=== PATIENT | female | born 1945 | race Caucasian/White ===

== ENCOUNTER 2018-01-17 12:59 | Outpatient (CLI) | payer MEDICARE ==
--- NOTE | 2018-01-17 14:14 | RAD ---
RIGHT HIP TWO VIEWS: History: Hip pain. FINDINGS: There are moderate degenerative changes present. There is mild medial joint narrowing. Prominent spur ring from the femoral head and acetabulum. Subchondral cystic changes. IMPRESSION: Moderate degenerative changes as described. POS: [facility]
--- NOTE | 2018-01-17 15:34 | RAD ---
TWO VIEWS OF THE LEFT HIP 01/17/18 HISTORY: Pain. FINDINGS: There is mild superior joint space narrowing involving the left hip. There is lateral acetabular oste ophyte formation on the left. There are postoperative clips in the left inguinal region. No acute fra cture or dislocation is seen. IMPRESSION: Left hip superior joint space narrowing and lateral acetabular osteophyte formation with no acute fra cture or evidence of dislocation. POS: [facility]
--- NOTE | 2018-01-17 15:38 | RAD ---
AP PELVIS: Indications: Hip pain. FINDINGS: Femoral head contour is preserved bilaterally. There appears to be some kind of cystic changes in the right femoral head with hypertrophic spurring from the right femoral head indicating moderate degene rative changes of the right hip. Mild degenerative changes of the left hip noted. POS: [facility]
== END 2018-01-17 13:00 | disposition home or self-care (01) ==
LOC: SCSRAD 12:59
PROVIDERS: ATTEND Internal Medicine Rheumatology
DX: M25.551 Pain in right hip (principal); M16.0 Bilateral primary osteoarthritis of hip; M25.752 Osteophyte, left hip
CPT/HCPCS: 72170

== ENCOUNTER 2018-09-27 13:15 | Inpatient (IN) | payer MEDICARE ==
[2018-10-03 10:26] LABS: #Eosinphils 0.1 thou/uL (0.0-0.7); #Lymphocytes 1.4 thou/uL (1.20-3.40); #Monocytes 0.4 thou/uL (0.11-0.59); #Neutrophils 1.2 thou/uL (1.40-6.50); %Basophils 0.4 % (0.0-1.0); %Eosinophils 1.8 % (0.0-10.0); %Monocytes 13.4 % (0.0-10.0); %Neutrophils 40.4 % (42.0-75.0); Hemoglobin 13.5 g/dL (12.0-16.0); Mean Corpuscular HGB CONC 32.7 g/dL (32.0-36.0); Mean Corpuscular Hemoglobin 30.5 pg (27.0-31.0); Mean Corpuscular Volume 93.2 fL (78.0-98.0); Mean Platelet Volume 8.6 fL (7.4-10.4); Platelet Count 227 thou/uL (130-400); RBC Distribution Width 11.8 % (11.5-14.5); Red Blood Cell (RBC) Count 4.44 mill/uL (4.20-5.40); White Blood Cell (WBC) Count 3.1 thou/uL (4.8-10.8)
[2018-10-03 10:33] LABS: Prothrombin Time 12.8 SEC (12.0-14.7)
[2018-10-03 10:44] LABS: Anion Gap 10 mmol/L (10-20); BUN (Urea Nitrogen) 21 mg/dL (9.8-20.1); Calc. Creatinine Clearance 0 mL/min (70-130); Calcium 9.9 mg/dL (7.8-10.44); Carbon Dioxide 31 mmol/L (23-31); Chloride 103 mmol/L (98-107); Estimated GFR-MDRD 72; Glucose 69 mg/dL (83-110); Potassium 3.8 mmol/L (3.5-5.1); Sodium 140 mmol/L (136-145)
[2018-10-09] MEDS ORDERED: Fentanyl 100 MCG/2 ML VIAL ONE ×3 (05:51→08:44)
[2018-10-09] MEDS ORDERED: Ropivacaine 0.2% HCl/PF 20 ML ONE (05:51)
[2018-10-09] MEDS ORDERED: Lidocaine 2% Jelly 5 ML TUBE ONE (05:51)
[2018-10-09] MEDS ORDERED: Phenylephrine HCL 10 MG/ML VIAL ONE (05:52)
[2018-10-09] MEDS ORDERED: Midazolam HCl 2 mg/2 ml Vial ONE (06:23)
[2018-10-09] MEDS ORDERED: Sodium Chloride 0.9% 100 ML ONE (06:29)
[2018-10-09] MEDS ORDERED: Tranexamic Acid 1,000 MG/10 ML VIAL ONE (06:29)
[2018-10-09] MEDS ORDERED: Promethazine HCl 25 MG/ML VIAL IM PRN ×2 (06:59→10:59)
[2018-10-09] MEDS ORDERED: diphenhydrAMINE 25 MG CAP PO PRN ×2 (06:59→07:30)
[2018-10-09] MEDS ORDERED: Acetaminophen 325 MG TAB PO PRN (06:59)
[2018-10-09] MEDS ORDERED: Ondansetron PF 4 MG/2 ML Vial IVP PRN (06:59)
[2018-10-09] MEDS ORDERED: Zolpidem Tartrate 5 MG TAB PO PRN ×2 (06:59→07:30)
[2018-10-09] MEDS ORDERED: traMADol HCl 50 MG TAB PO PRN ×3 (06:59→07:30)
[2018-10-09] MEDS ORDERED: Naloxone HCl 0.4 mg/ml Vial IV PRN (07:30)
[2018-10-09] MEDS ORDERED: Promethazine HCl 25 MG SUPP PR PRN (07:30)
[2018-10-09] MEDS ORDERED: Bupivacaine 0.25% 10 ML VIAL EPIDURAL PRN (07:30)
[2018-10-09] MEDS ORDERED: Naloxone HCl 0.4 mg/ml Vial IVP PRN (07:30)
[2018-10-09] MEDS ORDERED: Hydrocerin (Eucerin) Cream 120 gm Jar TOP PRN (07:30)
[2018-10-09] MEDS ORDERED: diphenhydrAMINE 50 MG/ML VIAL IM PRN (07:30)
[2018-10-09] MEDS ORDERED: diphenhydrAMINE 50 MG/ML VIAL IVP PRN (07:30)
[2018-10-09] MEDS ORDERED: Fentanyl 5 mcg/Bup 0.075% Cadd 100 ML EPIDURAL ONE (08:36)
[2018-10-09] MEDS ORDERED: MULTIVIT IRON MINER PO SCH (09:00)
[2018-10-09] MEDS ORDERED: FOLIC ACID PO SCH (09:00)
[2018-10-09] MEDS ORDERED: [UNRECOGNIZED DRUG - OTHER] PO SCH (09:00)
--- NOTE | 2018-10-09 09:13 | RAD ---
XR Hip Rt 2-3 View HISTORY: Postop COMPARISON: None. FINDINGS: A right hip prosthesis is been placed which is in good position. No evidence of fracture. IMPRESSION: Placement of right hip prosthesis.
[2018-10-09] MEDS ORDERED: Ketorolac Tromethamine 30 MG/ML VIAL ONE (09:30)
--- NOTE | 2018-10-09 10:37 | OP ---
DATE OF PROCEDURE: 10/09/2018 PREOPERATIVE DIAGNOSIS: Degenerative joint disease, right hip. POSTOPERATIVE DIAGNOSIS: Degenerative joint disease, right hip. PROCEDURE PERFORMED: Right total hip arthroplasty using [place] Accolade 4 stem, a 54 mm cup, 36 mm head, X3 liner. GLASS FURNACE OPERATOR: Suad Ramon PA-C BLOOD LOSS: 100. SPECIMEN: None. DRAIN: None. COMPLICATION: None. PROCEDURE IN DETAIL: After informed consent was obtained in the preoperative holding area, the patient was taken to the operative suite where general anesthesia was induced. The patient was then positioned in the lateral decubitus position. The hip was then prepped and draped in usual sterile fashion. The patient received preoperative antibiotics. Prior to incision, time-out was called and all members of the surgical team agreed upon site, surgeon, and patient. After this, a longitudinal incision was made directly over the trochanter, noted by palpation extending 2 fingerbreadths above and below the trochanter. The deeper subcutaneous layer was undermined with Bovie electrocautery. The iliotibial band was encountered and incised sharply and the plane below this was developed bluntly. A Charnley retractor was placed to hold this opened. The lateral aspect of the trochanter and the abductor muscles were encountered and then reflected anteriorly off the trochanter using Bovie electrocautery. Once this was completed, the anterior capsule was then encountered and identified and copious capsulotomy was carried out, exposing the femoral neck and head. Dislocation maneuver was then performed and an in situ provisional neck cut was then made using the oscillating saw. Attention was then turned to acetabular preparation and sequential reaming was carried out up to the appropriate diameter. A trial was then malleted into place with good firm resistance and no pullout. The permanent acetabular shell was then malleted squarely into place, as was the appropriate liner. Once completed, the wound was copiously irrigated and attention was then turned to femoral preparation. Flexion and external rotation were performed of the exposed thigh and femoral elevators were then placed at the proximal aspect of the wound. Canal finder was used to establish the length of the canal and sequential reaming was carried out, followed by broaching. Once the appropriate stability was established with the trial broaches with flexion, extension and rotational stability, we did trial with neutral and 2 mm offset incremental necks. Once the appropriate size was decided upon, with good stability noted with flexion, extension, internal and external rotation and shuck being negative, we removed the femoral trial broach and malleted into place the permanent prosthesis with good firm fit, which was also stable to rotation. Again, the hip felt very stable to flexion, extension, internal and external rotation. Leg lengths appeared near anatomic clinically and we were quite happy with prosthesis placement. Copious irrigation was then carried out through the entirety of the wound. Primary closure of the abductors was accomplished with interrupted #2 Vicryl [id number] stitches and the IT band was then closed with interrupted #2 Vicryl, oversewn with a #2 running barbed Quill stitch. Subcutaneous fascia was closed with running barbed Quill stitch and a subcuticular Monocryl barbed Quill stitch was used for skin closure and augmented with skin cement. A sterile dressing was applied. The procedure was terminated without any complication. All counts were correct. The patient was awakened in the operative suite and taken to the recovery room in stable condition. Job ID: [id number]
[2018-10-09] MEDS ORDERED: Promethazine HCl 25 MG/ML VIAL SLOW IVP PRN (10:59)
[2018-10-09] MEDS ORDERED: Ondansetron HCl/PF 4 MG/2 ML Vial IVP PRN (10:59)
[2018-10-09] MEDS ORDERED: Ketorolac Tromethamine 30 MG/ML VIAL IVP SCH ×2 (12:00→14:00)
[2018-10-09 12:20] VITALS: BMI 19.7
[2018-10-09] MEDS: Artificial Tears 18 DROP/0.9 ML EA EYE SCH (12:22)
[2018-10-09] MEDS: Losartan 25 MG TAB PO SCH (12:22)
[2018-10-09] MEDS: Aspirin 81 mg Enteric Coated Tablet PO SCH ×2 (12:22→20:32)
[2018-10-09] MEDS: Calcium Carbonate + Vit D 1 TAB PO SCH (12:22)
[2018-10-09] MEDS: Sodium Chloride 0.9% 1,000 ML IV SCH ×3 (12:23→22:15)
[2018-10-09] MEDS: Ondansetron PF 4 MG/2 ML Vial IVP PRN ×2 (12:41→20:31)
[2018-10-09] MEDS ORDERED: Glycopyrrolate 0.2 MG/ML 5 ML SYRINGE ONE (14:26)
[2018-10-09] MEDS ORDERED: PHENYLEPHRINE-NS 100 MCG/ML 10 ML SYRINGE ONE (14:26)
[2018-10-09] MEDS ORDERED: Dexamethasone 20 MG/5 ML VIAL ONE (14:26)
[2018-10-09] MEDS ORDERED: PROPOFOL 200 MG/20 ML VIAL ONE (14:26)
[2018-10-09] MEDS ORDERED: Rocuronium Bromide 10 MG/ML (10ML VIAL) ONE (14:26)
[2018-10-09] MEDS ORDERED: Ondansetron PF 4 MG/2 ML Vial ONE (14:26)
[2018-10-09] MEDS: Ketorolac Tromethamine 30 MG/ML VIAL IVP SCH ×2 (15:59→20:36)
[2018-10-09] MEDS: CEFAZOLIN 2 GM in Premix Bag 1 BAG IVPB SCH ×2 (16:00→22:16)
[2018-10-09] MEDS: Promethazine HCl 25 MG/ML VIAL IM PRN (16:08)
--- NOTE | 2018-10-09 16:47 | PRG ---
DATE OF SERVICE: 10/09/2018 SUBJECTIVE: Ms. Brown is a pleasant 73-year-old female with past medical history significant for degenerative joint disease of the right hip and hypertension, who presented to the hospital today for elective right total hip arthroplasty with Dr. Young. The hospitalist service is being consulted for continued medical management of this patient. The patient's procedure was successful, she underwent right total hip arthroplasty using [place] Accolade 4 stem, a 54 mm cup, 36 mm head, X3 liner. She is resting comfortably postoperatively in her room. She has no pain at this time. She does complain of some nausea. No chest pain or shortness of breath. No palpitations. No other complaints at this time. OBJECTIVE: VITAL SIGNS: Blood pressure 127/63, pulse 50, temperature 96.7, and O2 saturation is 95% on room air. PHYSICAL EXAMINATION: GENERAL: This is a thin, well-appearing female, in some mild distress secondary to her nausea. HEENT: Head, atraumatic and normocephalic. Mucous membranes are moist. NECK: No JVD. Trachea is midline. No carotid bruits. CV: S1 and S2. Regular rate and rhythm. No appreciable murmurs, rubs, or gallops. LUNGS: Regular respiratory rate and pattern. Clear to auscultation bilaterally. ABDOMEN: Soft, flat. No distention. Positive bowel sounds. Nontender. SKIN: Warm and dry. No rashes. EXTREMITIES: No edema. Her right operative site has a dressing in place. NEUROLOGIC: Cranial nerves 2 through 12 intact. The patient is nonfocal. LABORATORY DATA: White blood cell count 3.1, hemoglobin 13.5, hematocrit 41.4, and platelets are 227. PT 12.8 and INR 1.0. Sodium 140, potassium 3.8, chloride 103, carbon dioxide 31, anion gap 10, BUN 21, creatinine 0.79, glucose was 69, and calcium 9.9. ASSESSMENT: 1. Status post right total hip arthroplasty with Dr. Young, postoperative day 0. 2. Postoperative nausea. 3. Hypertension. PLAN: We will continue IM Phenergan along with her Zofran in an attempt to control her nausea. She has an epidural in place, and her postoperative pain is currently controlled. We will continue her home medications including her losartan. Postoperative antibiotics have been ordered by Dr. Young, which include Ancef 2 g. We will follow along. The care of this patient has been discussed with Dr. Coles , who agrees with management as above. Job ID: [id number] [facility]
[2018-10-09] MEDS: Simvastatin 5 MG TAB PO SCH (20:32)
[2018-10-09] MEDS: Latanoprost 0.005% Ophth Soln 2.5 ml Bottle EA EYE SCH (21:11)
[2018-10-10] MEDS: Fentanyl 5 mcg/Bup 0.075% Cadd 100 ML EPIDURAL SCH ×2 (01:33→17:48)
[2018-10-10] MEDS: Sodium Chloride 0.9% 1,000 ML IV SCH ×3 (03:12→23:35)
[2018-10-10] MEDS: Ketorolac Tromethamine 30 MG/ML VIAL IVP SCH ×4 (03:31→21:46)
[2018-10-10 05:09] LABS: Hemoglobin 10.6 g/dL (12.0-16.0); Mean Corpuscular HGB CONC 32.5 g/dL (32.0-36.0); Mean Corpuscular Hemoglobin 30.2 pg (27.0-31.0); Mean Platelet Volume 8.9 fL (7.4-10.4); Platelet Count 163 thou/uL (130-400); RBC Distribution Width 11.8 % (11.5-14.5); Red Blood Cell (RBC) Count 3.51 mill/uL (4.20-5.40); White Blood Cell (WBC) Count 7.6 thou/uL (4.8-10.8)
[2018-10-10] MEDS: Ferrous Gluconate 324 MG TAB PO SCH ×2 (08:40→16:59)
[2018-10-10] MEDS: Senokot S 8.6-50 MG TAB PO SCH ×2 (08:40→21:45)
[2018-10-10] MEDS: Multivitamin W/ Minerals 1 TAB PO SCH (08:41)
[2018-10-10] MEDS: Calcium Carbonate + Vit D 1 TAB PO SCH (08:41)
[2018-10-10] MEDS: Losartan 25 MG TAB PO SCH (08:41)
[2018-10-10] MEDS: Aspirin 81 mg Enteric Coated Tablet PO SCH ×2 (08:41→21:45)
[2018-10-10] MEDS: Artificial Tears 18 DROP/0.9 ML EA EYE SCH (08:44)
[2018-10-10] MEDS ORDERED: Polyethylene Glycol 3350 17 GM Packet PO PRN (16:58)
--- NOTE | 2018-10-10 17:00 | PDOC.PN ---
- Subjective Encounter Start Date: 10/10/18 Encounter Start Time: 16:00 Patient seen and examined for med mngt. Doing well. Pain controlled. No CP/N/V. No new complaints. No overnight events - Objective MAR Reviewed: Yes Vital Signs & Weight: Vital Signs (12 hours) Temp Pulse Resp BP Pulse Ox 10/10/18 15:48 97.9 F 69 18 95/56 L 94 L 10/10/18 12:35 98 F 67 16 104/52 L 95 10/10/18 08:38 94 L 10/10/18 08:21 98.6 F 65 14 112/63 94 L Weight Admit Weight 115 lb Weight 115 lb I&O: 10/09/18 10/10/18 10/11/18 06:59 06:59 06:59 Intake Total 1050 400 Output Total 200 Balance 850 400 Result Diagrams: 10/10/18 04:41 10/03/18 09:34 EKG Reviewed by me: Yes (SB) Phys Exam - Physical Examination Constitutional: NAD Respiratory: no wheezing, no rhonchi Cardiovascular: RRR, no rub Gastrointestinal: soft, non-tender, positive bowel sounds Musculoskeletal: no edema Neurological: non-focal, moves all 4 limbs Psychiatric: A&O x 3 Dx/Plan - Plan DVT proph w/SCDs IMPRESSION: HTN HLD CKD2 Glaucoma PLAN: Cont Losartan with holding parameters Cont Statins Cont Latanoprost Will follow Review of Systems - Review of Systems Respiratory: negative: Cough, Dry, Shortness of Breath, Hemoptysis, SOB with Excertion, Pleuritic Pain, Sputum, Wheezing Cardiovascular: negative: chest pain, palpitations, orthopnea, paroxysmal nocturnal dyspnea, edema, light headedness, other Gastrointestinal: negative: Nausea, Vomiting, Abdominal Pain, Diarrhea, Constipation, Melena, Hematochezia, Other - Medications/Allergies Allergies/Adverse Reactions: Allergies Allergy/AdvReac Type Severity Reaction Status Date / Time codeine Allergy Intermediate Swollen Verified 10/09/18 12:13 Lips Medications: Current Medications Acetaminophen (Tylenol) 650 mg PO Q4H PRN PRN Reason: Headache/Fever or MILD Pain Artificial Tears (Tears Naturale) 1 drop EA EYE DAILY [facility] Last Admin: 10/10/18 08:44 Dose: Not Given Aspirin (Ecotrin) 81 mg PO BID [facility] Last Admin: 10/10/18 08:41 Dose: 81 mg Calcium/Vitamin D (Caltrate 600 + Vit D) 1 tab PO DAILY [facility] Last Admin: 10/10/18 08:41 Dose: 1 tab Diphenhydramine HCl (Benadryl) 25 mg PO Q3H PRN PRN Reason: Itching Diphenhydramine HCl (Benadryl) 25 mg IM Q3H PRN PRN Reason: Itching Diphenhydramine HCl (Benadryl) 25 mg IVP Q3H PRN PRN Reason: Itching Emollient Cream (Hydrocerin Cream) 0 gm TOP PRN PRN PRN Reason: Itching Ferrous Gluconate (Fergon) 324 mg PO BID-WM [facility] Last Admin: 10/10/18 08:40 Dose: 324 mg Sodium Chloride (Normal Saline 0.9%) 1,000 mls @ 100 mls/hr IV .Q10H [facility] Last Admin: 10/10/18 08:46 Dose: 1,000 mls Fentanyl Citrate (Fentanyl/Bupivacaine) 100 mls @ 6 mls/hr EPIDURAL INF [facility] Last Admin: 10/10/18 01:33 Dose: 100 mls Iron/Minerals/Multivitamins (Theragran M) 1 tab PO DAILY [facility] Last Admin: 10/10/18 08:41 Dose: 1 tab Ketorolac Tromethamine (Toradol) 15 mg IVP 0300,0900,1500,2100 [facility] Stop: 10/11/18 09:01 Last Admin: 10/10/18 14:16 Dose: 15 mg Latanoprost (Xalatan 0.005% Ophth Soln) 1 drop EA EYE HS [facility] Last Admin: 10/09/18 21:11 Dose: Not Given Miscellaneous Information (Communication Order-Pharmacy) 1 each FS ASDIR [facility] Naloxone HCl (Narcan) 0.2 mg IV Q5MIN PRN PRN Reason: RR <=8 OR OBTUNDED/UNAROUSABLE Naloxone HCl (Narcan) 0.1 mg IVP Q15MIN PRN PRN Reason: URINARY RETENTION Ondansetron HCl (Zofran) 4 mg IVP Q6H PRN PRN Reason: Nausea/Vomiting Last Admin: 10/09/18 20:31 Dose: 4 mg Promethazine HCl (Phenergan) 12.5 mg IM Q4H PRN PRN Reason: Nausea Last Admin: 10/09/18 16:08 Dose: 12.5 mg Promethazine HCl (Phenergan Suppository) 25 mg NE Q4H PRN PRN Reason: Nausea/Vomiting Senna/Docusate Sodium (Senokot S) 2 tab PO BID [facility] Last Admin: 10/10/18 08:40 Dose: 2 tab Simvastatin (Zocor) 10 mg PO HS [facility] Last Admin: 10/09/18 20:32 Dose: 10 mg Sodium Chloride (Flush - Normal Saline) 10 ml IVF PRN PRN PRN Reason: Saline Flush Last Admin: 10/09/18 20:31 Dose: 10 ml Tramadol HCl (Ultram) 50 mg PO Q6H PRN PRN Reason: Mild Pain 1-3 Tramadol HCl (Ultram) 100 mg PO Q6H PRN PRN Reason: Moderate Pain 4-6 Zolpidem Tartrate (Ambien) 5 mg PO HSPRN PRN PRN Reason: Insomnia
[2018-10-10] MEDS: Simvastatin 5 MG TAB PO SCH (21:44)
[2018-10-10] MEDS: Latanoprost 0.005% Ophth Soln 2.5 ml Bottle EA EYE SCH (21:46)
[2018-10-11] MEDS: Ketorolac Tromethamine 30 MG/ML VIAL IVP SCH ×2 (03:30→09:01)
[2018-10-11 05:27] LABS: Hemoglobin 10.7 g/dL (12.0-16.0); Mean Corpuscular HGB CONC 33.3 g/dL (32.0-36.0); Mean Corpuscular Hemoglobin 31.2 pg (27.0-31.0); Mean Corpuscular Volume 93.9 fL (78.0-98.0); Platelet Count 144 thou/uL (130-400); RBC Distribution Width 11.9 % (11.5-14.5); Red Blood Cell (RBC) Count 3.43 mill/uL (4.20-5.40); White Blood Cell (WBC) Count 5.9 thou/uL (4.8-10.8)
[2018-10-11] MEDS: Ondansetron PF 4 MG/2 ML Vial IVP PRN ×2 (06:02→14:02)
[2018-10-11] MEDS: Ferrous Gluconate 324 MG TAB PO SCH ×2 (08:55→18:30)
[2018-10-11] MEDS: Promethazine HCl 25 MG/ML VIAL IM PRN (09:03)
[2018-10-11] MEDS: Losartan 25 MG TAB PO SCH (09:44)
[2018-10-11] MEDS: Senokot S 8.6-50 MG TAB PO SCH ×2 (09:46→21:32)
[2018-10-11] MEDS: Sodium Chloride 0.9% 1,000 ML IV SCH ×4 (09:46→22:35)
[2018-10-11] MEDS: Artificial Tears 18 DROP/0.9 ML EA EYE SCH (09:46)
[2018-10-11] MEDS: Multivitamin W/ Minerals 1 TAB PO SCH (09:46)
[2018-10-11] MEDS: Calcium Carbonate + Vit D 1 TAB PO SCH (09:46)
[2018-10-11] MEDS: Aspirin 81 mg Enteric Coated Tablet PO SCH ×2 (09:46→21:32)
[2018-10-11] MEDS ORDERED: Ondansetron PF 4 MG/2 ML Vial IVP SCH (10:45)
[2018-10-11] MEDS ORDERED: Acetaminophen 500 MG TAB PO PRN (13:10)
[2018-10-11] MEDS ORDERED: Ibuprofen 200 MG TAB PO PRN (13:19)
[2018-10-11] MEDS ORDERED: Sodium Chloride 0.9% 500 ML IVPB SCH (13:30)
[2018-10-11] MEDS ORDERED: Lorazepam 2 MG/ML VIAL SLOW IVP PRN (16:05)
--- NOTE | 2018-10-11 16:30 | PRG ---
DATE OF SERVICE: 10/11/2018 SUBJECTIVE: The patient has been extremely nauseated today. She reports that yesterday she was feeling great, but today the nausea came back and she has had no ability to take in any p.o.'s today. She has vomited everything she has tried to take in. She denies any specific abdominal pain. She does have some pain at the base of the skull posteriorly at the neck area. OBJECTIVE: VITAL SIGNS: Temperature 97.8, pulse 72, respirations 18, O2 saturation 97% on room air, and blood pressure 118/59 up to 167/80. GENERAL APPEARANCE: Age-appropriate female. She is in no distress. She is awake and alert. She is unfortunately vomiting. While I am in the room with her, she tried to drink a bit of an Ensure and that did not go well. She is otherwise in no overt distress other than being uncomfortable from the nausea. HEART: Reveals tachycardia at the moment. LUNGS: Clear bilaterally. ABDOMEN: Has active bowel sounds and is nontender to palpation. EXTREMITIES: Warm and dry without edema. LABORATORY DATA: White count 5.9, hemoglobin 10.7, and platelets 144. IMPRESSION AND PLAN: 1. Status post total right hip arthroplasty. 2. Nausea and vomiting. The patient is unable to take any p.o.'s, having significant vomiting. She has had Zofran twice and Phenergan once and have persisted through all of that and I gave her a small dose of lorazepam to see if that might ease her nausea a bit better. The etiology of this is unclear. She is afebrile. Her white count is normal. Her abdominal exam is relatively benign. Most likely this would represent some type of reaction to anesthesia or other perioperative medications, all of that has been discontinued including the epidural as of this morning. With that being the case, one would suspect that she would be significantly better by now. We will continue to treat symptomatically. 3. Hypertension. The patient is having some elevated blood pressure along with tachycardia, but around the time of nausea and vomiting, it is unclear if it is just simply reaction to that. It is unclear if she was able to take in her p.o. medications today. It is tolerable at the moment. We will continue to monitor as we improve her nausea situation. Job ID: [id number]
[2018-10-11] MEDS: Simvastatin 5 MG TAB PO SCH (21:32)
[2018-10-11] MEDS: Latanoprost 0.005% Ophth Soln 2.5 ml Bottle EA EYE SCH (21:34)
[2018-10-12] MEDS: Sodium Chloride 0.9% 1,000 ML IV SCH ×3 (04:49→14:06)
[2018-10-12 06:14] LABS: Hemoglobin 11.6 g/dL (12.0-16.0); Mean Corpuscular HGB CONC 33.5 g/dL (32.0-36.0); Mean Corpuscular Hemoglobin 30.9 pg (27.0-31.0); Mean Corpuscular Volume 92.2 fL (78.0-98.0); Mean Platelet Volume 8.8 fL (7.4-10.4); Platelet Count 168 thou/uL (130-400); RBC Distribution Width 11.6 % (11.5-14.5); Red Blood Cell (RBC) Count 3.75 mill/uL (4.20-5.40)
[2018-10-12 07:41] LABS: Anion Gap 11 mmol/L (10-20); BUN (Urea Nitrogen) 9 mg/dL (9.8-20.1); Calc. Creatinine Clearance 73 mL/min (70-130); Calcium 8.3 mg/dL (7.8-10.44); Carbon Dioxide 25 mmol/L (23-31); Chloride 103 mmol/L (98-107); Estimated GFR-MDRD Greater than 90; Glucose 88 mg/dL (83-110); Potassium 3.6 mmol/L (3.5-5.1); Sodium 135 mmol/L (136-145)
[2018-10-12] MEDS: Ferrous Gluconate 324 MG TAB PO SCH ×3 (09:38→16:07)
[2018-10-12] MEDS: Aspirin 81 mg Enteric Coated Tablet PO SCH ×2 (09:39→20:36)
[2018-10-12] MEDS: Senokot S 8.6-50 MG TAB PO SCH ×2 (09:39→20:36)
[2018-10-12] MEDS: Calcium Carbonate + Vit D 1 TAB PO SCH (09:39)
[2018-10-12] MEDS: Multivitamin W/ Minerals 1 TAB PO SCH ×2 (09:39)
[2018-10-12] MEDS: Losartan 25 MG TAB PO SCH (09:39)
[2018-10-12] MEDS: Ondansetron PF 4 MG/2 ML Vial IVP PRN (09:42)
[2018-10-12] MEDS: Promethazine HCl 25 MG/ML VIAL IM PRN (09:59)
[2018-10-12] MEDS: Artificial Tears 18 DROP/0.9 ML EA EYE SCH (10:00)
--- NOTE | 2018-10-12 10:29 | PRG ---
DATE OF SERVICE: 10/12/2018 SUBJECTIVE: The patient reports her nausea is better. Feels like she needs to try to eat something. Feels like she may be up to that today. She reports that her headache persist. She has pain at the base of the skull and a little bit in the temporal region. She has had no pain with her hip and is doing really well with that. OBJECTIVE: VITAL SIGNS: Temperature is 97.9, pulse 71, respirations 18, O2 saturation 93% on room air, BP 153/78 to 166/80. GENERAL APPEARANCE: Age-appropriate female. She is up and walking with physical therapy with a walker. She has no apparent distress. She is pleasant and cooperative. She has tenderness to palpation at the insertion of the cervical paraspinous muscles at the base of the skull. IMPRESSION AND PLAN: 1. Postoperative hip appears to be doing really well from that perspective. 2. Nausea and vomiting appears to be resolved, likely was related to perioperative medications. Continue p.r.n.'s. 3. Headache. The patient likely has some musculoskeletal pain that should respond to anti-inflammatory. She has ibuprofen ordered. We will order some heat to that area. Otherwise, she appears to be overall very stable. 4. Hypertension. Blood pressure is still running a little bit high and should be back on her usual medicines today, so I could give that a little bit of time certainly there within the tolerable range. DISPOSITION: The patient is okay for discharge from a medical perspective with outpatient followup, but that is the decision that Orthopedic Service would like to make. Job ID: [id number]
[2018-10-12] MEDS ORDERED: hydrALAZINE 10 MG TAB PO SCH (12:15)
[2018-10-12] MEDS ORDERED: Fioricet 325/50/40 mg Tablet PO SCH (12:15)
[2018-10-12] MEDS: Simvastatin 5 MG TAB PO SCH (20:36)
[2018-10-12] MEDS: Latanoprost 0.005% Ophth Soln 2.5 ml Bottle EA EYE SCH (20:39)
--- NOTE | 2018-10-12 21:15 | PDOC.EVN ---
Event Note - Event Note Event Note: Reassessed in the evening. TORRES improving, SBP 150's. Tolerated a little yogurt. Trying some jello. Will give prn fioricet.
[2018-10-13] MEDS: Sodium Chloride 0.9% 1,000 ML IV SCH ×3 (03:54→13:24)
[2018-10-13] MEDS: Fioricet 325/50/40 mg Tablet PO PRN ×2 (04:09→09:40)
[2018-10-13 05:38] LABS: Hemoglobin 11.9 g/dL (12.0-16.0); Mean Corpuscular HGB CONC 33.1 g/dL (32.0-36.0); Mean Corpuscular Hemoglobin 30.2 pg (27.0-31.0); Mean Corpuscular Volume 91.4 fL (78.0-98.0); Platelet Count 202 thou/uL (130-400); RBC Distribution Width 11.5 % (11.5-14.5); Red Blood Cell (RBC) Count 3.93 mill/uL (4.20-5.40); White Blood Cell (WBC) Count 5.5 thou/uL (4.8-10.8)
[2018-10-13] MEDS: Calcium Carbonate + Vit D 1 TAB PO SCH (08:50)
[2018-10-13] MEDS: Aspirin 81 mg Enteric Coated Tablet PO SCH (08:50)
[2018-10-13] MEDS: Ferrous Gluconate 324 MG TAB PO SCH (08:50)
[2018-10-13] MEDS: Losartan 25 MG TAB PO SCH (08:50)
[2018-10-13] MEDS: Multivitamin W/ Minerals 1 TAB PO SCH (08:50)
[2018-10-13] MEDS: Senokot S 8.6-50 MG TAB PO SCH (08:50)
[2018-10-13] MEDS: Artificial Tears 18 DROP/0.9 ML EA EYE SCH (08:51)
[2018-10-13] MEDS ORDERED: Ketorolac Tromethamine 30 MG/ML VIAL IVP SCH (09:15)
--- NOTE | 2018-10-13 09:57 | PRG ---
DATE OF SERVICE: 10/12/2018 SUBJECTIVE: Loan is a 73-year-old white female, who is postop day 3 from a right total hip arthroplasty. She has had nausea and vomiting, which held her admission yesterday and today she complains bitterly of a headache still. Her blood pressure has been running a little higher 150s to 160s. She is still symptomatic despite antiemetics. OBJECTIVE: VITAL SIGNS: Temperature 98.5, pulse 84, respiratory rate 16, O2 saturation 95% on room air, and blood pressure is 153/78. GENERAL: She is alert, responsive, and appropriate, but she does complain of a headache and keeps her eyes closed. Grossly nonfocal; however. SKIN: Her incision is clean and closed. No erythema. MUSCULOSKELETAL: There is no malrotation or shortening of the hip. IMPRESSION: 1. A 73-year-old white female, postop day #3 right total hip arthroplasty. 2. Elevated blood pressure. 3. Headaches, nausea, and vomiting, suspect migrainous nature. PLAN: Continue current care. Defer to Medicine. Add antiemetics and some Fioricet. Job ID: [id number]
--- NOTE | 2018-10-13 10:05 | PRG ---
DATE OF SERVICE: 10/11/2018 SUBJECTIVE: Loan is a 73-year-old white female, who is postop day 2 from a right total hip arthroplasty. She has been doing relatively well, ambulating acceptable distances, but the patient has had some nausea this morning. OBJECTIVE: VITAL SIGNS: Temperature 99, pulse 80, respiratory rate 16 and nonlabored, O2 saturation is 93% on room air, and blood pressure is 118/59. GENERAL: She is alert and oriented to person, place, time, and situation. Grossly nonfocal. She does complain of a headache. She has had some emesis already this morning. IMPRESSION: 1. Postop day 2, right total hip arthroplasty. 2. New onset headache, etiology suspect migraine. PLAN: We will hold discharge until the patient's nausea and vomiting clears, but at this point, we will treat symptomatically. Defer to medicine. Job ID: [id number]
[2018-10-13 10:47] VITALS: BP 138/62; TEMP 97.9
--- NOTE | 2018-10-13 11:59 | PDOC.PN ---
- Subjective Encounter Start Date: 10/13/18 Encounter Start Time: 11:57 Still had some issues this morning, but took a fioricet and had a dose of Toradol and feels much better now. Eager to go home. Dressed and ready. - Objective Vital Signs & Weight: Vital Signs (12 hours) Temp Pulse Resp BP BP Pulse Ox 10/13/18 10:44 97.9 F 67 16 138/62 98 10/13/18 07:13 98.2 F 72 16 158/78 H 97 10/13/18 03:55 97.9 F 73 16 172/80 H 96 Weight Admit Weight 115 lb Weight 115 lb I&O: 10/12/18 10/13/18 10/14/18 06:59 06:59 06:59 Intake Total 2180 2700 Output Total 800 Balance 1380 2700 Result Diagrams: 10/13/18 04:48 10/12/18 06:29 Phys Exam - Physical Examination Constitutional: NAD Smiling and talkative. Up and around the room. Dx/Plan (1) Headache Code(s): R51 - HEADACHE Status: Acute (2) Hypertension Code(s): I10 - ESSENTIAL (PRIMARY) HYPERTENSION Status: Acute (3) Nausea & vomiting Code(s): R11.2 - NAUSEA WITH VOMITING, UNSPECIFIED Status: Acute - Plan * Nausea resolved. * BP up and down, but tolerable for discharge and outpatient follow up. * TORRES is mostly at the insertion of the cervical paraspinous insertion. Recommended heat once home. * Recommend FU with PCP.
== END 2018-10-13 13:22 | disposition home or self-care (01) | DRG 470 ==
LOC: SURG A 10-09 05:39 → SJJU 10-09 11:09 → EDSTATUS 10-09 13:15
PROVIDERS: ADMIT Orthopaedic Surgery; ATTEND Orthopaedic Surgery
PROC: 0SR90JZ Replacement of Right Hip Joint with Synthetic Substitute, Open Approach (ICD-10-PCS; principal; 2018-10-09)
DX: M16.11 Unilateral primary osteoarthritis, right hip (principal); E78.5 Hyperlipidemia, unspecified; I12.9 Hypertensive chronic kidney disease with stage 1 through stage 4 chronic kidney disease, or unspecified chronic kidney disease; N18.2 Chronic kidney disease, stage 2 (mild); H40.9 Unspecified glaucoma; R11.2 Nausea with vomiting, unspecified; G43.909 Migraine, unspecified, not intractable, without status migrainosus; Z88.5 Allergy status to narcotic agent; Z90.711 Acquired absence of uterus with remaining cervical stump; Z90.49 Acquired absence of other specified parts of digestive tract; Z98.42 Cataract extraction status, left eye; Z98.41 Cataract extraction status, right eye
CPT/HCPCS: 36415; 80048; 85025; 85027; 85610; 86850; 86900; 86901; C1776; J0131; J0690; J1100; J1885; J2060; J2250; J2370; J2405; J2550; J2704; J2795; J3010; J3370; J3490; Q0163

== ENCOUNTER 2018-10-03 09:17 | Outpatient (CLI) | payer MEDICARE ==
--- NOTE | 2018-10-03 09:56 | RAD ---
Chest 2 views: 10/03/2018 COMPARISON: 09/16/2015 HISTORY: Preoperative patient FINDINGS: Increased linear interstitial density and pulmonary hyperinflation noted. Heart and mediast inal contours appear within normal limits. No pneumothorax or pleural fluid. No focal consolidation or alveolar edema. IMPRESSION: Increased linear interstitial density and pulmonary hyperinflation suggesting COPD in the proper clinical setting. No radiographic evidence of acute cardiopulmonary disease.
== END 2018-10-03 09:18 | disposition home or self-care (01) ==
LOC: LABBT 09:17
PROVIDERS: ATTEND Orthopaedic Surgery
DX: Z01.810 Encounter for preprocedural cardiovascular examination (principal); M16.11 Unilateral primary osteoarthritis, right hip
CPT/HCPCS: 71046; 87081; 93005; 93010

== ENCOUNTER 2019-01-03 11:45 | Outpatient (CLI) | payer MEDICARE ==
--- NOTE | 2019-01-03 15:08 | MRI ---
MRI OF LUMBAR SPINE PERFORMED WITHOUT CONTRAST ENHANCEMENT: History: Back, right knee, and chin pain. FINDINGS: Vertebral bodies are normal in height. Disc space height appear well preserved with some generalized disc desiccation changes at L2-3, L3-4, and L4-5. At the T11 vertebral body there is a T1 slightly mi xed signal intensity and T2 relatively hypointense mass measuring 11 mm in size. It is felt to most l ikely be intradural and intramedullary but difficult to assess as it is only seen on the sagittal pro jections and needs further characterization. A T2 hyperintense lesion involving the upper pole of the right kidney is most compatible with a cyst. No significant periaortic adenopathy. T12-L1: Unremarkable. L1-2: Degenerative facet changes without canal or foraminal stenosis. L2-3: Mild degenerative facet changes without canal or foraminal stenosis. L3-4: Canal shows a mild degree of stenosis with some disc bulge, facet, and ligamentous hypertrophic change. There is also a mild right and moderate left foraminal narrowing. L4-5: Disc bulge with facet and ligamentous hypertrophic changes, also seen at this level. No signifi cant canal stenosis. There is mild right and moderate left foraminal narrowing. L5-S1: Degenerative facet changes are present without significant canal or foraminal stenosis. IMPRESSION: 1. Incompletely characterized mass measuring 11 mm in size which appears to be within the thecal sac at the T12 level although only seen on the sagittal views. An MRI of the thoracic spine to be perform ed with and without contast would be recommended for further characterization. 2. Areas of canal and foraminal stenosis as described above. POS: [facility]
== END 2019-01-03 11:46 | disposition home or self-care (01) ==
LOC: SCSMRI 11:45
PROVIDERS: ATTEND Orthopaedic Surgery
DX: M48.061 Spinal stenosis, lumbar region without neurogenic claudication (principal); M48.8X4 Other specified spondylopathies, thoracic region
CPT/HCPCS: 72148

== ENCOUNTER 2019-01-22 09:59 | Outpatient (CLI) | payer MEDICARE ==
--- NOTE | 2019-01-22 11:50 | MRI ---
Exam: MRI thoracic spine with and without contrast COMPARISON: Lumbar spine MRI 01/03/2019 TECHNIQUE: Thoracic spine MRI is performed with and without intravenous gadolinium administration. Mu lti sequential, multiplanar imaging performed FINDINGS: Appropriate T1 marrow signal intensity of the thoracic vertebra. Thoracic spine vertebral body height is maintained. There is no fracture. There is no significant STIR hyperintensity to suggest vertebral body edema or ligamentous injury. There is no abnormal enhancement of the thoracic vertebra . Visualized mediastinum, lung parenchyma, retroperitoneal structures and solid organs have an overall normal appearance. Cyst in the right renal cortex is noted. The thoracic cord has a normal size and signal intensity. There is no intramedullary enhancement. No cord malacia. Conus medullaris terminates at the inferior aspect of L1. In the posterior right aspect of the central spinal canal there is a extra medullary, intradural focu s that measures 1.1 x 0.8 cm. This lesion is intrinsically T1 hypointense, T2 isointense. Postcontrast images demonstrate heterogeneous enhancement. Additional similar lesions are not appreci ated. Meningioma is favored. There is resultant moderate central canal stenosis and leftward deviation of the thoracic cord, without cord signal abnormality. The remainder of the thoracic spine demonstrates a patent central spinal canal. 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 There is evidence of enhancement. Imaging feature s are most consistent with meningioma. Transcribed Date/Time: 01/22/2019 12:58 PM
== END 2019-01-22 10:00 | disposition home or self-care (01) ==
LOC: SCSMRI 09:59
PROVIDERS: ATTEND Orthopaedic Surgery
DX: R22.2 Localized swelling, mass and lump, trunk (principal); G95.9 Disease of spinal cord, unspecified
CPT/HCPCS: 72157; 82565

== ENCOUNTER 2019-04-02 09:22 | Outpatient (CLI) | payer MEDICARE ==
--- NOTE | 2019-04-02 15:27 | MRI ---
MRI Brain W WO Con: 04/02/2019 12:00 AM CLINICAL HISTORY: History of WRAPPER LAYER mass. COMPARISON: June 24, 2015 FINDINGS: Extra axial spaces: Mild, rounded benign-appearing CSF signal attenuation overlies the high right fro ntal convexity. Acute infarction: None. Ventricular system: Normal in size and morphology for the patient's age. Basal cisterns: Normal. Cerebral parenchyma: Microvascular ischemic changes. Midline shift: None. Cerebellum: Normal. Brainstem: Normal. Paranasal sinuses:Clear Intraaxial Enhancement: None IMPRESSION:No acute intracranial abnormality.
--- NOTE | 2019-04-02 15:32 | MRI ---
"PRELIMINARY REPORT" MRI Cervical spine without contrast: HISTORY: History of headache and neck pain, history of tumor COMPARISON: None FINDINGS: The craniocervical junction is unremarkable. No significant cord signal abnormality. No pathologic intramedullary enhancement, or evidence of mass-producing enhancement within the verteb ral canal. C1-2:No significant stenosis. C2-3:No significant stenosis. C3-4:No significant central canal or right foraminal stenosis. Uncinate processes and facet hypertrop hy result in mild left foraminal stenosis. C4-5:Trace spondylolisthesis. No significant central canal or neural foraminal stenosis. C5-6:Disc osteophyte effaces ventral thecal sac. There is mild central canal stenosis. Bilateral unci alex process hypertrophy, left greater than right results in moderate left and mild to moderate right neural foraminal stenosis. C6-7: Mild disc osteophyte slightly effaces ventral thecal sac. Mild left neural foraminal narrowing. No significant right neural foraminal stenosis. C7-T1:No significant stenosis. IMPRESSION: No pathologic intramedullary enhancement of the cervical spine. Additional details are described above. Transcribed Date/Time: 04/02/2019 3:39 PM
--- NOTE | 2019-04-02 15:35 | MRI ---
Exam: Thoracic spine MRI with and without contrast COMPARISON: 01/22/2019 HISTORY: Right sided sciatica. Back pain. TECHNIQUE: Thoracic spine MRI is performed with and without intravenous gadolinium administration. Mu lti sequential, multiplanar imaging was performed FINDINGS: Visualized mediastinum, lung parenchyma and solid organs are grossly unremarkable. Minimal dependent atelectatic changes are noted Appropriate T1 marrow signal intensity thoracic vertebra. Thoracic spine vertebral body height is christa ntained. There is no fracture. No significant STIR hyperintensity to suggest vertebral body edema or ligamentous injury. The thoracic cord has a normal size and signal intensity. No cord expansion. No cord malacia. The con us medullary terminates at he the mid L1 level Redemonstration of a extramedullary, intradural enhancing focus along the posterior right aspect of t he central spinal canal, the T12 level. Lesion has not changed in size and currently measures 1.0 cm anterior-posterior by 0.7 cm mediolateral. Minimal contact upon the right cord. This lesion may ab ut the traversing nerve roots of the distal thoracic dermatome. No new lesions are appreciated. Neural foramina are patent throughout the thoracic spine IMPRESSION: 1. Redemonstration of an enhancing intradural extramedullary lesion at the T12 level. Imaging feature s are most consistent with meningioma. No new lesions. 2. No significant central canal stenosis. No significant neural foraminal narrowing. Transcribed Date/Time: 04/02/2019 3:43 PM
== END 2019-04-02 09:23 | disposition home or self-care (01) ==
LOC: SCSMRI 09:22
PROVIDERS: ATTEND Surgery
DX: D33.2 Benign neoplasm of brain, unspecified (principal); M16.9 Osteoarthritis of hip, unspecified; M48.061 Spinal stenosis, lumbar region without neurogenic claudication; M54.31 Sciatica, right side; Z86.69 Personal history of other diseases of the nervous system and sense organs
CPT/HCPCS: 70553; 72156; 72157; 82565

== ENCOUNTER 2019-07-13 09:44 | Observation (INO) | payer MEDICARE ==
--- NOTE | 2019-07-13 10:05 | RAD ---
EXAM: Two views chest PROVIDED CLINICAL HISTORY: Chest pain COMPARISON: None FINDINGS: Cardiac and mediastinal silhouette appears within normal limits. Lungs appear free of significant opa city. No pleural fluid or pneumothorax apparent. Lungs remain hyperinflated and hyperlucent compatible with chronic obstructive change. IMPRESSION: No evidence for an acute cardiopulmonary process.
[2019-07-13 10:23] LABS: #Basophils 0.1 thou/uL (0.0-0.2); #Lymphocytes 0.9 thou/uL (1.20-3.40); #Monocytes 0.3 thou/uL (0.11-0.59); #Neutrophils 1.4 thou/uL (1.40-6.50); %Basophils 2.7 % (0.0-1.0); %Eosinophils 0.4 % (0.0-10.0); %Lymphocytes 34.7 % (21.0-51.0); %Monocytes 10.3 % (0.0-10.0); %Neutrophils 51.9 % (42.0-75.0); Hemoglobin 14.5 g/dL (12.0-16.0); Mean Corpuscular HGB CONC 33.6 g/dL (32.0-36.0); Mean Corpuscular Hemoglobin 30.7 pg (27.0-31.0); Mean Corpuscular Volume 91.4 fL (78.0-98.0); Mean Platelet Volume 8.4 fL (7.4-10.4); Platelet Count 227 thou/uL (130-400); RBC Distribution Width 11.9 % (11.5-14.5); Red Blood Cell (RBC) Count 4.71 mill/uL (4.20-5.40); White Blood Cell (WBC) Count 2.6 thou/uL (4.8-10.8)
[2019-07-13 10:44] LABS: ALT (SGPT) 14 U/L (8-55); AST (SGOT) 20 U/L (5-34); Albumin 4.3 g/dL (3.4-4.8); Alkaline Phosphatase 70 U/L (40-110); Anion Gap 12 mmol/L (10-20); BUN (Urea Nitrogen) 22 mg/dL (9.8-20.1); Bilirubin, Total 0.5 mg/dL (0.2-1.2); Calc. Creatinine Clearance 0 mL/min (70-130); Carbon Dioxide 28 mmol/L (23-31); Chloride 104 mmol/L (98-107); Estimated GFR-MDRD 56; Globulin 2.7 g/dL (2.4-3.5); Glucose 109 mg/dL (83-110); Potassium 3.9 mmol/L (3.5-5.1); Sodium 140 mmol/L (136-145)
[2019-07-13] MEDS ORDERED: Meclizine HCl 25 MG TAB ONE (10:56)
[2019-07-13] MEDS ORDERED: Aspirin Chewable 81 MG TAB ONE (10:57)
[2019-07-13] MEDS ORDERED: Ondansetron PF 4 MG/2 ML Vial ONE (11:30)
[2019-07-13] MEDS ORDERED: Ondansetron ODT 4 MG TAB PO PRN (13:10)
--- NOTE | 2019-07-13 13:19 | PDOC.HHP ---
Hospitalist HPI - History of Present Illness Chest pain and dizziness History of Present Illness: This is a 75-year-old female with past medical history of hypertension and glaucoma who presented to the hospital with complains of dizziness and mild chest pain earlier this morning. The patient who has been otherwise healthy apart from hip replacement procedure last year, woke up this morning with mild left shoulder pain. She developed a dizzy episode when she was trying to get out of the bed and again when she reached the bathroom. The patient explains to the episode as lightheadedness and feeling that she is about to pass out. She denies any loss of consciousness. She developed nausea but denies any vomiting. Her symptoms completely resolved at the time of presentation. She was able to ambulate down the santos to the restroom without any complaints. The patient does take losartan with hydrochlorothiazide at home and endorsed drinking up to 6 cups of tea daily. Hospitalist ROS - Review of Systems All other systems reviewed; all pertinent +/- noted in HPI/Subj Hospitalist History - Past Medical History Source: patient, family Cardiac: reports: HTN Other Medical History: Glaucoma. - Past Surgical History Other Surgical History: Hip replacement - Family History Family History: reports: no pertinent history (Regards to her current presentation) - Exam Eye: PERRL, anicteric sclera ENT: normocephalic atraumatic Neck: supple Heart: RRR, no murmur, no gallops, no rubs Respiratory: CTAB, normal chest expansion, no tachypnea Gastrointestinal: soft, non-tender, normal bowel sounds Extremities: no clubbing, no edema Neurological: cranial nerve grossly intact, no focal deficits Psychiatric: normal affect, normal behavior, A&O x 3 Hospitalist Results - Labs Result Diagrams: 07/13/19 10:10 07/13/19 10:10 Lab results: WBC 2.6 thou/uL (4.8-10.8) L 07/13/19 10:10 Hgb 14.5 g/dL (12.0-16.0) 07/13/19 10:10 Hct 43.1 % (36.0-47.0) 07/13/19 10:10 MCV 91.4 fL (78.0-98.0) 07/13/19 10:10 Plt Count 227 thou/uL (130-400) 07/13/19 10:10 Neutrophils % 51.9 % (42.0-75.0) 07/13/19 10:10 Sodium 140 mmol/L (136-145) 07/13/19 10:10 Potassium 3.9 mmol/L (3.5-5.1) 07/13/19 10:10 Chloride 104 mmol/L (98-107) 07/13/19 10:10 Carbon Dioxide 28 mmol/L (23-31) 07/13/19 10:10 BUN 22 mg/dL (9.8-20.1) H 07/13/19 10:10 Creatinine 0.98 mg/dL (0.6-1.1) 07/13/19 10:10 Glucose 109 mg/dL (83-110) 07/13/19 10:10 Calcium 10.0 mg/dL (7.8-10.44) 07/13/19 10:10 Total Bilirubin 0.5 mg/dL (0.2-1.2) 07/13/19 10:10 AST 20 U/L (5-34) 07/13/19 10:10 ALT 14 U/L (8-55) 07/13/19 10:10 Alkaline Phosphatase 70 U/L (40-110) 07/13/19 10:10 Troponin I 0.013 ng/mL (< 0.028) 07/13/19 10:10 Serum Total Protein 7.0 g/dL (6.0-8.3) 07/13/19 10:10 Albumin 4.3 g/dL (3.4-4.8) 07/13/19 10:10 - EKG Interpretation EKG: NSR Hospitalist H&P A/P - Problem (1) Dizziness Code(s): R42 - DIZZINESS AND GIDDINESS Status: Acute (2) Dehydration Code(s): E86.0 - DEHYDRATION Status: Acute (3) Shoulder pain Code(s): M25.519 - PAIN IN UNSPECIFIED SHOULDER Status: Acute - Plan Plan: The patient presented with symptoms of dizziness and on atypical on chest/ shoulder pain. Given her history of diuretic use and excessive tea ingestion and she is at risk of dehydration. Clinically she has some dry mucous membranes. Her laboratory studies are positive for slightly elevated BUN. Troponin level slightly elevated at 0.013. Her presentation is likely noncardiac, however, I will trend the troponins. I will gently hydrate her overnight and place her on a color television console monitor. If her symptoms do not recur by tomorrow, she will be a candidate for discharge.
[2019-07-13 13:58] LABS: Troponin I Less than 0.010 ng/mL (< 0.028)
[2019-07-13] MEDS ORDERED: Amlodipine 5 MG TAB PO SCH (14:00)
[2019-07-13 15:29] VITALS: BMI 20.6
[2019-07-13] MEDS: Sodium Chloride 0.9% 1,000 ML IV SCH (15:51)
[2019-07-13 16:40] LABS: Troponin I 0.011 ng/mL (< 0.028)
[2019-07-13] MEDS ORDERED: Simvastatin 5 MG TAB PO SCH (21:00)
[2019-07-13] MEDS ORDERED: Latanoprost 0.005% Ophth Soln 2.5 ml Bottle EA EYE SCH (21:00)
[2019-07-13] MEDS ORDERED: Aspirin 81 mg Enteric Coated Tablet PO SCH (21:00)
[2019-07-14 05:23] LABS: #Eosinphils 0.1 thou/uL (0.0-0.7); #Lymphocytes 1.8 thou/uL (1.20-3.40); #Monocytes 0.4 thou/uL (0.11-0.59); #Neutrophils 1.6 thou/uL (1.40-6.50); %Basophils 0.5 % (0.0-1.0); %Eosinophils 2.3 % (0.0-10.0); %Lymphocytes 46.4 % (21.0-51.0); %Monocytes 11.3 % (0.0-10.0); %Neutrophils 39.6 % (42.0-75.0); Hemoglobin 12.4 g/dL (12.0-16.0); Mean Corpuscular HGB CONC 33.7 g/dL (32.0-36.0); Mean Corpuscular Volume 91.9 fL (78.0-98.0); Mean Platelet Volume 8.4 fL (7.4-10.4); Platelet Count 202 thou/uL (130-400); RBC Distribution Width 12.1 % (11.5-14.5); Red Blood Cell (RBC) Count 4.01 mill/uL (4.20-5.40); White Blood Cell (WBC) Count 3.9 thou/uL (4.8-10.8)
[2019-07-14] MEDS: Sodium Chloride 0.9% 1,000 ML IV SCH (05:32)
[2019-07-14 05:44] LABS: Anion Gap 9 mmol/L (10-20); BUN (Urea Nitrogen) 15 mg/dL (9.8-20.1); Calc. Creatinine Clearance 57 mL/min (70-130); Calcium 8.6 mg/dL (7.8-10.44); Carbon Dioxide 28 mmol/L (23-31); Chloride 107 mmol/L (98-107); Estimated GFR-MDRD 73; Glucose 98 mg/dL (83-110); Potassium 4.2 mmol/L (3.5-5.1); Sodium 140 mmol/L (136-145)
[2019-07-14] MEDS ORDERED: Calcium Carbonate + Vit D 1 TAB PO SCH (09:00)
[2019-07-14] MEDS ORDERED: Multivitamin W/ Minerals 1 TAB PO SCH (09:00)
[2019-07-14] MEDS ORDERED: Artificial Tears 18 DROP/0.9 ML EA EYE SCH (09:00)
[2019-07-14] MEDS ORDERED: Losartan 25 MG TAB PO SCH (09:00)
[2019-07-14] MEDS ORDERED: Enoxaparin Sodium 40 MG/0.4 ML SYRINGE SC SCH (09:00)
[2019-07-14 11:51] VITALS: BP 126/60; TEMP 98.6
--- NOTE | 2019-07-14 18:06 | PDOC.BPN ---
- Brief Progress Note FERMIN lopez code: [id number]
--- NOTE | 2019-07-15 01:37 | DIS ---
DATE OF ADMISSION: 07/13/2019 DATE OF DISCHARGE: 07/14/2019 ATTENDING PHYSICIAN: Ayad Rubio MD HISTORY OF PRESENT ILLNESS: This is a 74-year-old female with past medical history of hypertension and glaucoma, who presented to the hospital with complaints of dizziness and mild chest pain earlier in the day of admission. The patient has been otherwise healthy apart from a hip replacement procedure last year, woke up this morning with mild left shoulder pain. She developed dizzy episode when she was trying to get out of the bed and again when she reached the bathroom. The patient explains the episode as lightheadedness and feeling that she is about to pass out. Denies any loss of consciousness. She developed nausea, but denies any vomiting. Her symptoms completely resolved at the time of the presentation. She was able to ambulate down the santos to the restroom without any complains in the ER. HOSPITAL COURSE AND MANAGEMENT: The patient was taking hydrochlorothiazide with losartan at home and she admitted to drinking up to 6 cups of tea daily. She was found to be clinically dehydrated on admission. Her dizzy spells were explained as lightheadedness. The patient denies any vertigo. She received IV fluids overnight and her symptoms did not recur. Hydrochlorothiazide will be discontinued. The patient was advised to drink more water and decrease her intake of tea. DISCHARGE DIAGNOSES: 1. Dizziness. 2. Dehydration. 3. Shoulder pain. DISCHARGE MEDICATIONS: 1. Losartan 50 mg orally daily. 2. Pravastatin 20 mg orally daily. 3. Latanoprost 7.5 mL ophthalmic drops one drop to each eye at nighttime. 4. Folic acid/multivitamins, iron, minerals one tablet orally daily. 5. Calcium carbonate, citrate/vitamin D3 one tablet orally daily. 6. Artificial Tears 0.9 mL each eye one drop daily. The patient was instructed to increase her activities and try to exercise for 20 to 30 minutes 2 to 3 times a week. DISCHARGE DIET: Low-salt diet. The patient was referred to her family doctor within one week. Job ID: [id number]
== END 2019-07-14 14:19 | disposition home or self-care (01) ==
LOC: ERS 09:44 → 2SW 14:38
PROVIDERS: ADMIT Internal Medicine; ATTEND Emergency Medicine
DX: R42 Dizziness and giddiness (principal); E86.0 Dehydration; M25.512 Pain in left shoulder; R07.89 Other chest pain; I10 Essential (primary) hypertension; H40.9 Unspecified glaucoma; E78.5 Hyperlipidemia, unspecified; E78.00 Pure hypercholesterolemia, unspecified; Z87.891 Personal history of nicotine dependence; Z79.899 Other long term (current) drug therapy; Z88.5 Allergy status to narcotic agent; Z96.641 Presence of right artificial hip joint
CPT/HCPCS: 71046; 80048; 80053; 84484 ×2; 85025 ×2; 93005; 96361 ×2; 96374; 99285; G0378 ×3; 36415; J2405; J8597

== ENCOUNTER 2019-10-08 13:27 | Outpatient (CLI) | payer MEDICARE ==
--- NOTE | 2019-10-08 18:04 | MRI ---
MRI thoracic spine with and without contrast: 10/08/2019 HISTORY: 74-year-old female with spinal meningioma. ICD-10: D 32.1 COMPARISON: 01/22/2019 FINDINGS: At the T12 level, there is an approximately 1.1 x 0.7 x 1.3 cm circumscribed, T2 hypointense, T1 hypo intense, enhancing solid mass in the right posterior aspect of the spinal canal. It appears to be intradural, extra medullary. It does not have a dural tail, and does not have a broad dural base. It does not appear typical for a meningioma, nerve sheath tumor, or any of the other common spinal tumors found in the intradural, extramedullary space, but it does appear non-aggressive. It chronica lly mildly displaced of the spinal cord to the left. There is no edema or any other intramedullary signal abnormality in the spinal cord. No syrinx. Other than the presence of this mass, there is no c entral spinal canal stenosis or high-grade neural foraminal stenosis at any level. Bone marrow signal is normal. Vertebral body heights are maintained. No high-grade degenerative disc disease at a ny level. No interval change overall. IMPRESSION: No interval change in the extra medullary-intradural mass, with nonaggressive features, in the spinal canal at the T12 level
== END 2019-10-08 13:28 | disposition home or self-care (01) ==
LOC: SCSMRI 13:27
PROVIDERS: ATTEND Surgery
DX: D32.1 Benign neoplasm of spinal meninges (principal); M48.9 Spondylopathy, unspecified
CPT/HCPCS: 72157; 82565

== ENCOUNTER 2023-01-10 13:03 | Outpatient (CLI) | payer MEDICARE | END 2023-01-10 13:04 | disposition home or self-care (01) | LOC: RAD 13:03 | PROVIDERS: ATTEND Internal Medicine | DX: R06.00 Dyspnea, unspecified (principal); J44.9 Chronic obstructive pulmonary disease, unspecified | CPT/HCPCS: 71046 ==

== ENCOUNTER 2023-04-17 13:00 | Outpatient (CLI) | payer MEDICARE | END 2023-04-17 13:01 | disposition home or self-care (01) | LOC: SCSMRI 13:00 | PROVIDERS: ATTEND Surgery | DX: D32.1 Benign neoplasm of spinal meninges (principal); G95.9 Disease of spinal cord, unspecified; R42 Dizziness and giddiness; M48.04 Spinal stenosis, thoracic region | CPT/HCPCS: 72148; 72157 ==